=== PATIENT | male | born 1960 | race Caucasian/White ===

== ENCOUNTER 2018-06-26 17:50 | Emergency (ER) | payer MEDICAID ==
[~2018-06-26] VITALS: Ht 167.6 cm; Wt 68.2 kg
[~2018-06-26 17:50] MED LIST: CYCL-394 PO; IBUP-1572 PO; IBUP-1984 PO; ONDA4TAB59 PO; PANT40TA39 PO; SUCR1ORA2 PO
[2018-06-26 18:03] VITALS: BP_DIAS 99
[2018-06-26] MEDS ORDERED: proparacaine 0.5% ophthalmic drops 15ml EACHEYE ONE (18:10)
[2018-06-26] MEDS ORDERED: TETRACAINE 0.5% 5 ML OPHTHALMIC DROPS RIGHTEYE ONE (18:10)
[2018-06-26 18:15] VITALS: BP_SYST 187
--- NOTE | 2018-06-26 18:22 | NUR ---
EDMD instilled eye drops & performed assessment.
[2018-06-26] MEDS ORDERED: TRAM50TA2 PO (18:29)
[2018-06-26] MEDS ORDERED: VIG0.5OS RIGHTEYE (18:29)
== END 2018-06-26 18:35 | disposition home or self-care (01) ==
LOC: ER 17:50
DX: H10.9 Unspecified conjunctivitis (principal); F17.200 Nicotine dependence, unspecified, uncomplicated; F12.90 Cannabis use, unspecified, uncomplicated; Z79.899 Other long term (current) drug therapy
CPT/HCPCS: 96361; 96365; 99283; 99285